=== PATIENT | male | born 1990 | race Caucasian/White ===

== ENCOUNTER 2016-05-31 19:05 | Emergency (ER) | payer SELFPAY ==
[~2016-05-31] VITALS: Ht 177.8 cm; Wt 69.4 kg
[~2016-05-31 19:05] MED LIST: ALER-CAP25 M1 PO; DELTASONE10 MG PO; NOHOMEMEDS; Pepcid PO; TRAMADOL HCL50 MG PO; VICOPROFEN1 TABLET PO; ZOFRAN4 MG PO
[2016-05-31 19:07] VITALS: BP 152/99
[2016-05-31 19:50] LABS: ADD MIUA? YES; BILIRUBIN NEGATIVE; BLOOD LARGE; COLOR STRAW ((YELLOW)); GLUCOSE (STRIP) NEGATIVE; KETONES NEGATIVE; LEUKOCYTES NEGATIVE; NITRITE NEGATIVE; PROTEIN (STRIP) NEGATIVE; SPECIFIC GRAVITY 1.004 (1.000-1.030); UROBILINOGEN 0.2 MG/DL (0.2-1.0)
[2016-05-31 19:59] LABS: AMPHETAMINE NEGATIVE (500 ng/mL); BARBITURATES NEGATIVE (200 ng/mL); BENZODIAZEPINES NEGATIVE (150 ng/mL); COCAINE NEGATIVE (150 ng/mL); INTERNAL CONTROLS VALID? YES; METHADONE NEGATIVE (200 ng/mL); METHAMPHETAMINE NEGATIVE (500 ng/mL); OPIATES (MORPHINE) NEGATIVE (100 ng/mL); OXYCODONE NEGATIVE (100 ng/mL); PHENCYCLIDINE NEGATIVE (25 ng/mL); PROPOXYPHENE NEGATIVE (300 ng/mL); THC CANNABINOIDS NEGATIVE (50 ng/mL); TRICYCLIC ANTIDEPRESSANTS NEGATIVE (300 ng/mL)
[2016-05-31 20:06] LABS: HEMATOCRIT 50.5 % (38.0-50.0); MCHC 34.7 G/DL (30.0-36.0); MCV 89.5 FL (86-99); MEAN PLAT.VOLUME 9.9 uM^3 (9.0-12.4); PLATELET COUNT 149 K/uL (156-360); RBC DIS.WIDTH-CV 14.5 % (11.8-14.6); RBC DIS.WIDTH-SD 46.8 % (39-53); RED BLOOD COUNT 5.64 M/uL (4.00-5.50); WHITE BLOOD COUNT 7.8 K/uL (4.1-10.2)
[2016-05-31 20:17] LABS: CHLORIDE 106 mEq/L (99-109); POTASSIUM 3.7 mEq/L (3.7-5.4); SODIUM 144 mEq/L (136-147)
[2016-05-31 20:19] LABS: GLUCOSE 89 mg/dL (70-99)
[2016-05-31 20:20] LABS: ANION GAP 14 MEQ/L (2-14)
[2016-05-31 20:21] LABS: TOTAL BILIRUBIN 0.2 mg/dL (0.0-1.0)
[2016-05-31 20:22] LABS: ALKALINE PHOSPHATASE 89 IU/L (3-129); SERUM ETHYL ALCOHOL 348 mg/dL
[2016-05-31 20:23] LABS: GFR ESTIMATE (CALCULATED) > 59 mL/min/
[2016-05-31 20:24] LABS: UREA NITROGEN (BUN) 7 mg/dL (9-23)
[2016-05-31 20:29] LABS: BACTERIA NONE SEEN /HPF; EPITHELIAL CELLS NONE SEEN /HPF; MUCUS NONE SEEN /LPF; RED BLOOD CELLS NONE SEEN /HPF (0-5); UCUL ADDED? NO; WHITE BLOOD CELLS NONE SEEN /HPF (0-5)
[2016-06-01] MEDS ORDERED: THIAMINE HCL100 MG PO (09:07)
[2016-06-01] MEDS ORDERED: LIBRIUM25 MG PO (09:07)
== END 2016-06-01 09:47 | disposition home or self-care (01) ==
LOC: EME 19:05
PROVIDERS: Emergency Medicine
DX: F33.9 Major depressive disorder, recurrent, unspecified (principal); F10.129 Alcohol abuse with intoxication, unspecified; Y90.8 Blood alcohol level of 240 mg/100 ml or more; Z91.5 Personal history of self-harm; F17.200 Nicotine dependence, unspecified, uncomplicated
CPT/HCPCS: 80053; 81003; 85027; 90839; 99281; 99284; G0480

== ENCOUNTER 2016-06-26 14:23 | Emergency (ER) | payer OTHER ==
[~2016-06-26] VITALS: Ht 177.8 cm; Wt 69.3 kg
[~2016-06-26 14:23] MED LIST changes: +LIBRIUM25 MG PO; +THIAMINE HCL100 MG PO
[2016-06-26 15:12] LABS: BASOPHIL COUNT 0.1 K/uL (0-0.1); EOSINOPHIL (%) 2.9 % (0-5); EOSINOPHIL COUNT 0.2 K/uL (0-0.3); HEMATOCRIT 51.2 % (38.0-50.0); IMMATURE GRANULOCYTE (%) 0.1 % (0.0-0.7); LYMPHOCYTE COUNT 2.1 K/uL (1.0-2.8); MCH 30.3 PG (29.0-34.0); MCV 89.2 FL (86-99); MEAN PLAT.VOLUME 9.4 uM^3 (9.0-12.4); MONOCYTE (%) 8.6 % (3-12); MONOCYTE COUNT 0.6 K/uL (0-0.8); NEUTROPHIL (%) 56.7 % (45-76); PLATELET COUNT 150 K/uL (156-360); RBC DIS.WIDTH-CV 13.7 % (11.8-14.6); RBC DIS.WIDTH-SD 44.7 % (39-53); RED BLOOD COUNT 5.74 M/uL (4.00-5.50)
[2016-06-26 15:19] LABS: CHLORIDE 103 mEq/L (99-109); POTASSIUM 3.8 mEq/L (3.7-5.4); SODIUM 141 mEq/L (136-147)
[2016-06-26 15:22] LABS: GLUCOSE 96 mg/dL (70-99)
[2016-06-26 15:23] LABS: ANION GAP 17 MEQ/L (2-14)
[2016-06-26 15:24] LABS: TOTAL BILIRUBIN 0.5 mg/dL (0.0-1.0)
[2016-06-26 15:25] LABS: ALKALINE PHOSPHATASE 100 IU/L (3-129); SERUM ETHYL ALCOHOL 265 mg/dL
[2016-06-26 15:26] LABS: GFR ESTIMATE (CALCULATED) > 59 mL/min/
[2016-06-26 15:27] LABS: UREA NITROGEN (BUN) 8 mg/dL (9-23)
[2016-06-26 21:14] LABS: ADD MEDTOX COMMENT Y; AMPHETAMINE NEGATIVE (500 ng/mL); BARBITURATES NEGATIVE (200 ng/mL); BENZODIAZEPINES PRESUMPTIVE POSITIVE (150 ng/mL); COCAINE NEGATIVE (150 ng/mL); INTERNAL CONTROLS VALID? YES; METHADONE NEGATIVE (200 ng/mL); METHAMPHETAMINE NEGATIVE (500 ng/mL); OPIATES (MORPHINE) NEGATIVE (100 ng/mL); OXYCODONE NEGATIVE (100 ng/mL); PHENCYCLIDINE NEGATIVE (25 ng/mL); PROPOXYPHENE NEGATIVE (300 ng/mL); THC CANNABINOIDS NEGATIVE (50 ng/mL); TRICYCLIC ANTIDEPRESSANTS NEGATIVE (300 ng/mL)
[2016-06-26] MEDS ORDERED: LIBRIUM25 MG PO (21:54)
[2016-06-26 22:12] VITALS: BP 144/103
[2016-06-26 22:53] LABS: BENZODIAZEPINES QUANT VALUE 0 NG/ML
[2016-06-26 23:00] LABS: BENZODIAZEPINES, URINE SCREEN Negative (200 ng/mL)
== END 2016-06-26 22:14 | disposition home or self-care (01) ==
LOC: EME 14:23
PROVIDERS: Emergency Medicine
DX: F10.20 Alcohol dependence, uncomplicated (principal); F33.9 Major depressive disorder, recurrent, unspecified; F17.200 Nicotine dependence, unspecified, uncomplicated
CPT/HCPCS: 70450; 80053; 84999; 85025; 90839; 99281; 99284; G0480

== ENCOUNTER 2016-09-22 12:07 | Emergency (ER) | payer OTHER ==
[~2016-09-22] VITALS: Ht 180.3 cm; Wt 67.9 kg
[2016-09-22] MEDS ORDERED: BUSPIRONE HCL30 MG PO (13:17)
[2016-09-22 14:13] LABS: HEMATOCRIT 51.1 % (38.0-50.0); MCHC 34.1 G/DL (30.0-36.0); MCV 91.1 FL (86-99); MEAN PLAT.VOLUME 10.2 uM^3 (9.0-12.4); PLATELET COUNT 165 K/uL (156-360); RBC DIS.WIDTH-SD 43.8 % (39-53); RED BLOOD COUNT 5.61 M/uL (4.00-5.50); WHITE BLOOD COUNT 15.1 K/uL (4.1-10.2)
[2016-09-22 14:24] LABS: CHLORIDE 103 mEq/L (99-109); POTASSIUM 3.9 mEq/L (3.7-5.4); SODIUM 137 mEq/L (136-147)
[2016-09-22 14:26] LABS: GLUCOSE 82 mg/dL (70-99)
[2016-09-22 14:27] LABS: ANION GAP 12 MEQ/L (2-14)
[2016-09-22 14:30] LABS: GFR ESTIMATE (CALCULATED) > 59 mL/min/
[2016-09-22 14:31] LABS: UREA NITROGEN (BUN) 12 mg/dL (9-23)
[2016-09-22 16:04] LABS: ADD MIUA? YES; BILIRUBIN NEGATIVE; BLOOD LARGE; COLOR AMBER ((YELLOW)); GLUCOSE (STRIP) NEGATIVE; KETONES 80; LEUKOCYTES NEGATIVE; NITRITE NEGATIVE; PROTEIN (STRIP) 100; SPECIFIC GRAVITY 1.032 (1.000-1.030)
[2016-09-22] MEDS ORDERED: PERCOCET 5/31 TABLET PO (16:21)
[2016-09-22] MEDS ORDERED: ZOFRAN ODT4 MG PO (16:21)
[2016-09-22] MEDS ORDERED: FLOMAX0.4 MG PO (16:21)
[2016-09-22 16:35] LABS: RED BLOOD CELLS TNTC /HPF (0-5)
[2016-09-22 16:36] LABS: RED BLOOD CELL CLUMP 0-5 /HPF (0-5); WHITE BLOOD CELLS 0-5 /HPF (0-5)
[2016-09-22 16:37] LABS: EPITHELIAL CELLS RARE /HPF
[2016-09-22 16:38] LABS: BACTERIA RARE /HPF; MUCUS TRACE /LPF
[2016-09-22 17:23] VITALS: BP 114/90
== END 2016-09-22 17:24 | disposition home or self-care (01) ==
LOC: EME 12:07
PROVIDERS: Physician Assistant
DX: N13.2 Hydronephrosis with renal and ureteral calculous obstruction (principal); R31.9 Hematuria, unspecified; R11.2 Nausea with vomiting, unspecified; F17.200 Nicotine dependence, unspecified, uncomplicated
CPT/HCPCS: 74176; 80048; 81003; 85027; 99281; 99283; J1885; J3010

== ENCOUNTER 2017-03-16 16:00 | Emergency (ER) | payer OTHER ==
[~2017-03-16] VITALS: Ht 172.7 cm; Wt 67.2 kg
[~2017-03-16 16:00] MED LIST changes: +BUSPIRONE HCL30 MG PO; +FLOMAX0.4 MG PO; +PERCOCET 5/31 TABLET PO; +ZOFRAN ODT4 MG PO
[2017-03-16 16:43] LABS: HEMATOCRIT 54.3 % (38.0-50.0); MCH 30.6 PG (29.0-34.0); MCHC 34.1 G/DL (30.0-36.0); MCV 89.8 FL (86-99); PLATELET COUNT 128 K/uL (156-360); RBC DIS.WIDTH-CV 13.9 % (11.8-14.6); RED BLOOD COUNT 6.05 M/uL (4.00-5.50); WHITE BLOOD COUNT 7.9 K/uL (4.1-10.2)
[2017-03-16 16:53] LABS: CHLORIDE 101 mEq/L (99-109); POTASSIUM 4.6 mEq/L (3.7-5.4); SODIUM 135 mEq/L (136-147)
[2017-03-16 16:56] LABS: ANION GAP 11 MEQ/L (2-14); GLUCOSE 90 mg/dL (70-99)
[2017-03-16 16:58] LABS: GFR ESTIMATE (CALCULATED) > 59 mL/min/ (58.99-99999)
[2017-03-16 16:59] LABS: UREA NITROGEN (BUN) 10 mg/dL (9-23)
[2017-03-16 17:08] LABS: TOTAL BILIRUBIN 0.9 mg/dL (0.0-1.0)
[2017-03-16 17:09] LABS: ALKALINE PHOSPHATASE 103 IU/L (3-129)
[2017-03-16 17:42] LABS: ADD MIUA? YES; BILIRUBIN NEGATIVE; BLOOD LARGE; GLUCOSE (STRIP) NEGATIVE; KETONES 20; LEUKOCYTES NEGATIVE; NITRITE NEGATIVE; PROTEIN (STRIP) 100; SPECIFIC GRAVITY 1.021 (1.000-1.030)
[2017-03-16 17:43] LABS: COLOR AMBER ((YELLOW))
[2017-03-16 18:17] LABS: BACTERIA NONE SEEN /HPF; CASTS NONE SEEN /LPF; CRYSTALS NONE SEEN; EPITHELIAL CELLS NONE SEEN /HPF; MUCUS NONE SEEN /LPF; RED BLOOD CELLS TNTC /HPF (0-5); UCUL ADDED? YES; WHITE BLOOD CELLS 0-5 /HPF (0-5)
[2017-03-16] MEDS ORDERED: TRAMADOL HCL50 MG PO (20:07)
[2017-03-16] MEDS ORDERED: FLOMAX0.4 MG PO (20:07)
[2017-03-16] MEDS ORDERED: NAPROSYN500 MG PO (20:07)
[2017-03-16 20:30] VITALS: BP 131/83
[2017-03-18 13:08] LABS: CHLAMYDIA TRACHOMATIS NEGATIVE; NEISSERIA GONORRHOEAE NEGATIVE
== END 2017-03-16 20:31 | disposition home or self-care (01) ==
LOC: EME 16:00
PROVIDERS: Nurse Practitioner Family
DX: N20.0 Calculus of kidney (principal); Z87.442 Personal history of urinary calculi; F17.200 Nicotine dependence, unspecified, uncomplicated; Z71.6 Tobacco abuse counseling; F31.9 Bipolar disorder, unspecified; F32.9 Major depressive disorder, single episode, unspecified
CPT/HCPCS: 74020; 80048; 80053; 81003; 85027; 87086; 87491; 87591; 99281; 99285